=== PATIENT | male | born 1975 | race Caucasian/White ===

== ENCOUNTER 2020-10-14 20:05 | Emergency (ER) | payer BC ==
[2020-10-14] MEDS ORDERED: IBUPROFEN600 MG PO (20:34)
[2020-10-14] MEDS ORDERED: PAIN RELIEF1 EACH TP (20:34)
[2020-10-14] MEDS ORDERED: ACYCLOVIR800 MG PO (20:34)
[2020-10-14] MEDS ORDERED: HYDROCODON-ACE1 EAC4 PO (20:35)
== END 2020-10-14 20:43 | disposition home or self-care (01) ==
LOC: ER1 20:05
DX: B02.9 Zoster without complications (principal)
CPT/HCPCS: 99282